=== PATIENT | male | born 1980 | race African-American/Black ===

== ENCOUNTER → 2018-09-01 | Day surgery (SDC) | payer OTHER ==
[~2018-09-01] MED LIST: ALBUTEROL SULFATE 2.5 MG/3 ML NEBU. NEB PRN; ATROPINE 0.5 MG/5 ML DISP.SYRIN. IV PRN; FERR325T14 PO; IV RINGERS SOLUTION,LACTATED 1,000 ML IV SCH; LIDOCAINE 2% PF Vial for OR 5 ML VIAL. ONE; MESA1.2T PO; NALOXONE 0.4 MG/ML VIAL. IV PRN; ONDANSETRON PF 4 MG/2 ML VIAL. IV PRN; PROPOFOL 20 ML IV ONE; PROPOFOL 60 ML IV ONE; RANI150T21 PO
[2018-09-01 12:45] VITALS: BP 116/74
--- NOTE | 2018-09-06 11:09 | PATHOLOGY ---
[facility] Accession Number: [id number] . 01 Material submitted: . PART A: ANTRUM PART B: RIGHT COLON PART C: CECUM PART D: TRANSVERSE COLON PART E: DESCENDING COLON POLYPS PART F: DESCENDING COLON PART G: SIGMOID COLON PART H: RECTUM . 01 Clinician provided ICD-10: k21.9 R13.10 K62.5 . 01 Clinical history: . GERD, dysphagia, rectal bleeding, Crohn's . 02 Diagnosis: A. Gastric biopsies, antrum: - Chronic gastritis, mild to moderate, with focal intestinal metaplasia. . B. Colon biopsies, right colon: - Focal mild mucosal edema and few focally hyperplastic mucosal associated lymphoid aggregates. . C. Colon biopsies, cecum polyps: - Consistent with prominent mucosal folds. . D. Colon biopsies, transverse colon: - Focal mild mucosal edema and portions of mucosal associated lymphoid aggregates. . E. Colon biopsies, descending colon polyps: - Consistent with prominent mucosal folds, with several mucosal associated lymphoid aggregates. . F. Colon biopsies, descending colon: - Active chronic colitis, moderate to marked, without granulomas or specific features. . G. Colon biopsies, sigmoid colon: - Active chronic colitis, moderate to marked, without granulomas or specific features. . H. Rectal biopsies: - Focal mild active chronic proctitis without granulomas or specific features. [facility]/09/05/2018 . 02 Comment: Sections of the gastric antral biopsy show focally active mild to focal moderate chronic inflammation with focal intestinal metaplasia. A properly controlled immunoperoxidase stain for Helicobacter is negative of Helicobacter organisms. . Sections of the right colon, cecal, and transverse colon biopsies show no evidence of an active chronic colitis. . Sections of the descending colon and sigmoid colon biopsies show a moderate to marked active chronic colitis with focal acute cryptitis, crypt abscesses, and glandular architectural distortion. The findings are compatible with active chronic inflammatory bowel disease and are consistent with involvement by Crohn's disease. There is no dysplasia or evidence of malignancy. . Sections of the rectal biopsy show focal mild active chronic inflammation. There are no granulomas or specific features. (JPM:pit 09/05/2018) . Special stain performed: Immunoperoxidase for Helicobacter on A1 . 02 Electronically signed: . Jacinto Rodgers MD, Pathologist NPI- [id number] . 01 Gross description: . . A. The specimen is received in formalin, labeled "Vladislav, [place], antrum" and consists of 2 fragments of soft yan tissue measuring 0.5 x 0.2 x 0.1 cm and 0.4 x 0.2 x 0.1 cm. They are entirely submitted in A1. . B. The specimen is received in formalin, labeled "Vladislav, [place], right colon" and consists of 5 fragments of yan tissue measuring 1.0 x 0.5 x 0.2 cm in aggregate which are entirely submitted in B1. . C. The specimen is received in formalin, labeled "Vladislav, [place], cecum polyps" and consists of 3 fragments of yan tissue measuring 0.2 x 0.1 x 0.1 cm and 0.3 x 0.3 x 0.2 cm. They are entirely submitted in C1. . D. The specimen is received in formalin, labeled "Vladislav, [place], transverse colon" and consists of 4 fragments of soft yan tissue measuring between 0.2 x 0.2 x 0.1 cm and 0.4 x 0.2 x 0.1 cm. They are entirely submitted in D1. . E. The specimen is received in formalin, labeled "Vladislav, [place], descending colon polyps" and consists of 2 fragments of yan-brown tissue measuring 0.5 x 0.3 x 0.2 cm and 0.4 x 0.2 x 0.2 cm. They are entirely submitted in E1. . F. The specimen is received in formalin, labeled "Vladislav, [place], descending colon biopsies" and consists of multiple fragments of soft yan tissue measuring 1.2 x 0.6 x 0.2 cm in aggregate which are entirely submitted in F1. . G. The specimen is received in formalin, labeled "Vladislav, [place], sigmoid" and consists of multiple fragments of soft yan tissue measuring 1.5 x 0.7 x 0.3 cm in aggregate which are entirely submitted in G1. . H. The specimen is received in formalin, labeled "Vladislav, [place], rectum" and consists of 3 fragments of mendoza-yan tissue measuring between 0.5 x 0.3 x 0.1 cm and 0.3 x 0.2 x 0.1 cm. They are entirely submitted in H1. (SDY; 09/04/2018) SYU/SYU . 02 Pathologist provided ICD-10: K29.50, K52.9, K62.89, K21.9, R13.10, K62.5 . 02 CPT . 792573, 329598, 337195, 810260, 958639, 291604, 487131, [id number], [id number] Specimen Comment: A courtesy copy of this report has been sent to Specimen Comment: [phone], . Specimen Comment: Report sent to Specimen Comment: A duplicate report has been generated due to demographic updates. Performed at: 01 [facility] [address], [place] [id number] MD Augustin Mensah MD Phone: [phone] Performed at: 02 [facility] [address] [place], [place] [id number] MD Jacinto Rodgers MD Phone: [phone]
== END | disposition home or self-care (01) ==
LOC: SURG 09:48 → EDSEX 10:30 → EEVIPCON 10:30
PROVIDERS: ATTEND Internal Medicine Gastroenterology
DX: K22.2 Esophageal obstruction (principal); K63.5 Polyp of colon; K29.00 Acute gastritis without bleeding; K29.50 Unspecified chronic gastritis without bleeding; K52.9 Noninfective gastroenteritis and colitis, unspecified; K62.89 Other specified diseases of anus and rectum; K50.10 Crohn's disease of large intestine without complications; Z79.899 Other long term (current) drug therapy; K21.9 Gastro-esophageal reflux disease without esophagitis; Z98.890 Other specified postprocedural states
CPT/HCPCS: 43239; 43450; 45380; 88305; 88342; J2704; J3010; J7120; J2001

== ENCOUNTER 2019-02-02 12:27 | Emergency (ER) | payer OTHER ==
[~2019-02-02] VITALS: Ht 185.4 cm; Wt 70.8 kg
[~2019-02-02 12:27] MED LIST changes: -ALBUTEROL SULFATE 2.5 MG/3 ML NEBU. NEB PRN; -ATROPINE 0.5 MG/5 ML DISP.SYRIN. IV PRN; -IV RINGERS SOLUTION,LACTATED 1,000 ML IV SCH; -LIDOCAINE 2% PF Vial for OR 5 ML VIAL. ONE; -NALOXONE 0.4 MG/ML VIAL. IV PRN; -ONDANSETRON PF 4 MG/2 ML VIAL. IV PRN; -PROPOFOL 20 ML IV ONE; -PROPOFOL 60 ML IV ONE
[2019-02-02 12:37] VITALS: BP 122/93
--- NOTE | 2019-02-02 13:07 | PHYS DOC ---
Past History Past Medical History: GERD Past Surgical History: Tonsillectomy Alcohol Use: None Drug Use: None Adult General Chief Complaint Chief Complaint: bleeding from tonsills HPI HPI 38-year-old male presenting the emergency department today after having bleeding from his tonsils. He recently had a tonsillectomy on the by Dr. Chilel at [facility]. He has pain in the throat that is a sharp shooting pain. He is able to breathe without difficulty but continues to have bleeding. This started approximately an hour prior to arrival. Review of systems is negative for respiratory distress, chest pain shortness of breath abdominal pain or vomiting. All other review of systems is negative unless otherwise noted in history of present illness. ED course: 38-year-old male presenting the emergency department today with a post tonsillectomy bleed. We were unable to care for the patient given our lack of ENT. I called and spoke with Dr. Kirby who accepted the patient for admission at 1252. I did not want to delay transfer by trying to contact Dr. Chilel. After Dr. Kirby accepted, the patient I was able to contact Dr. Chilel' s on-call physician Dr. Hernandez who recommended I transfer the patient to . The patient was tolerating the bleeding without any difficulty and was breathing comfortably examination room. Review of Systems Review of Systems SEE ABOVE. Allergies Allergies Allergies Coded Allergies Type Severity Reaction Last Updated Verified No Known Drug Allergies 08/25/18 No Physical Exam Physical Exam SEE ABOVE Constitutional: Well developed, well nourished, no acute distress, non-toxic appearance. HENT: Normocephalic, atraumatic, bilateral external ears normal, oropharynx moist, on examination of the tonsils there is no pulsatile bleeding but generalized venous bleeding bilaterally. Eyes: PERRLA, EOMI, conjunctiva normal, no discharge. Neck: Normal range of motion, no tenderness, supple, no stridor. [] Cardiovascular:Heart rate regular rhythm, no murmur Lungs & Thorax: Bilateral breath sounds clear to auscultation [] Abdomen: Bowel sounds normal, soft, no tenderness, no masses, no pulsatile masses. [] Skin: Warm, dry, no erythema, no rash. Back: No tenderness, no CVA tenderness. [] Extremities: No tenderness, no cyanosis, no clubbing, ROM intact, no edema. [] Neurologic: Alert and oriented X 3, normal motor function, normal sensory function, no focal deficits noted. Psychologic: Affect normal, judgement normal, mood normal. [] Current Patient Data Vital Signs Vital Signs Date Time Temp Pulse Resp B/P (MAP) Pulse Ox O2 Delivery O2 Flow Rate FiO2 02/02/19 12:37 97.9 100 18 100 Room Air EKG EKG [] Radiology/Procedures Radiology/Procedures [] Course & Med Decision Making Course & Med Decision Making Pertinent Labs and Imaging studies reviewed. (See chart for details) [] Dragon Disclaimer Dragon Disclaimer This electronic medical record was generated, in whole or in part, using a voice recognition dictation system. Departure Departure: Impression: Primary Impression: Tonsillar bleed Disposition: XFER SHT-TRM HOSP () Condition: STABLE Referrals: PCP,MARTÍN (PCP) MARILEE HICKS MD Feb 02, 2019 13:07
[2019-02-02 13:17] LABS: BASO % 1 % (0-3); EOS # 0.1 x10^3/uL (0.0-0.7); EOS % 2 % (0-3); HEMATOCRIT 45.1 % (39.0-53.0); HEMOGLOBIN 15.2 g/dL (13.0-17.5); LYMPH # 2.7 x10^3/uL (1.0-4.8); LYMPH % 34 % (24-48); MEAN CORPUSCULAR HEMOGLOBIN 31 pg (25-35); MEAN CORPUSCULAR HGB CONC 34 g/dL (31-37); MEAN CORPUSCULAR VOLUME 91 fL (79-100); MONO # 1.5 x10^3/uL (0.0-1.1); MONO % 19 % (0-9); NEUT # 3.6 x10^3uL (1.8-7.7); NEUT % 46 % (31-73); PLATELET COUNT 424 x10^3/uL (140-400); RED BLOOD COUNT 4.96 x10^6/uL (4.30-5.70); RED CELL DISTRIBUTION WIDTH 13.3 % (11.5-14.5)
== END 2019-02-02 13:20 | disposition short-term general hospital (02) ==
LOC: ER 12:27 → EEVIPCON 12:27 → ER 13:20
DX: J95.830 Postprocedural hemorrhage of a respiratory system organ or structure following a respiratory system procedure (principal); K21.9 Gastro-esophageal reflux disease without esophagitis; Z90.89 Acquired absence of other organs
CPT/HCPCS: 36415; 85025; 99285